=== PATIENT | male | born 1970 ===

== ENCOUNTER → 2016-05-10 | Outpatient (CLI) | payer BC, MEDICARE ==
[~2016-05-10] VITALS: Ht 179.1 cm; Wt 97.0 kg
[~2016-05-10] MED LIST: ADV500 IH; ALLO100T PO; ALPR0.5T PO; BUME1TAB30 PO; CALC25 PO; COLC0.6T69 PO; CYAN500 PO; DORZ210OS OP; FINA5TAB41 PO; HOMA5DRO8 OU; ISON300 PO; LISI-661 PO; METF500T4 PO; METO100XL PO; NIFE30TA5 PO; PYRI50 PO; SENN-30 PO; TAMS0.4C32 PO; TIOT185 IH
[2016-05-10 13:57] VITALS: BP 125/74
== END | disposition home or self-care (01) ==
LOC: SRCNTR 13:50
PROVIDERS: ATTEND Internal Medicine
DX: J44.9 Chronic obstructive pulmonary disease, unspecified (principal); I10 Essential (primary) hypertension; E11.9 Type 2 diabetes mellitus without complications; J98.6 Disorders of diaphragm; E87.2 Acidosis; J98.4 Other disorders of lung; R06.1 Stridor
CPT/HCPCS: G0463

== ENCOUNTER → 2016-09-06 | Outpatient (CLI) | payer BC, MEDICARE ==
[~2016-09-06] VITALS: Ht 180.3 cm; Wt 100.0 kg
[2016-09-06 14:01] VITALS: BP 120/57
== END | disposition home or self-care (01) ==
LOC: SRCNTR 13:51
PROVIDERS: ATTEND Internal Medicine
DX: J44.9 Chronic obstructive pulmonary disease, unspecified (principal); E11.9 Type 2 diabetes mellitus without complications; E87.2 Acidosis; I10 Essential (primary) hypertension; J98.6 Disorders of diaphragm
CPT/HCPCS: G0463

== ENCOUNTER → 2017-03-04 | Outpatient (CLI) | payer BC, MEDICARE ==
[~2017-03-04] VITALS: Ht 177.8 cm; Wt 104.0 kg
[~2017-03-04] MED LIST changes: +BUME1TAB17 PO; -BUME1TAB30 PO; +COLC0.6T67 PO; -COLC0.6T69 PO; -HOMA5DRO8 OU; -ISON300 PO; +SENN-175 PO; -SENN-30 PO
[2017-03-04 13:48] VITALS: BP 142/76
== END | disposition home or self-care (01) ==
LOC: SRCNTR 13:32
PROVIDERS: ATTEND Internal Medicine
DX: J44.9 Chronic obstructive pulmonary disease, unspecified (principal); E87.2 Acidosis; E11.9 Type 2 diabetes mellitus without complications; I10 Essential (primary) hypertension
CPT/HCPCS: G0463

== ENCOUNTER → 2017-06-14 | Outpatient (CLI) | payer BC, MEDICARE ==
[~2017-06-14] VITALS: Ht 177.8 cm; Wt 93.0 kg
[~2017-06-14] MED LIST changes: +METF-444 PO; -METF500T4 PO
[2017-06-14 13:39] VITALS: BP 155/85
== END | disposition home or self-care (01) ==
LOC: SRCNTR 13:36
PROVIDERS: ATTEND Internal Medicine
DX: J44.9 Chronic obstructive pulmonary disease, unspecified (principal); I10 Essential (primary) hypertension; E11.9 Type 2 diabetes mellitus without complications; E87.2 Acidosis
CPT/HCPCS: G0463

== ENCOUNTER → 2018-01-07 | Outpatient (CLI) | payer BC, MEDICARE ==
[~2018-01-07] VITALS: Ht 177.8 cm; Wt 111.5 kg
[~2018-01-07] MED LIST changes: +AMLO-512 PO; +GLIP2.5ER PO; +LINA5TAB PO; +LOSA50TA25 PO; -SENN-175 PO; +SENN-176 PO; +SIMV-260 PO
[2018-01-07 09:37] VITALS: BP 129/72
== END | disposition home or self-care (01) ==
LOC: SRCNTR 09:33
PROVIDERS: ATTEND Internal Medicine
DX: J44.1 Chronic obstructive pulmonary disease with (acute) exacerbation (principal); E11.9 Type 2 diabetes mellitus without complications; E78.5 Hyperlipidemia, unspecified
CPT/HCPCS: G0463

== ENCOUNTER → 2022-04-03 | Outpatient (CLI) | payer MEDICARE, BC ==
[~2022-04-03] VITALS: Ht 177.8 cm; Wt 105.0 kg
[~2022-04-03] MED LIST changes: -ADV500 IH; +ALLO-97 PO; -ALLO100T PO; -ALPR0.5T PO; +AMLO-258 PO; -AMLO-512 PO; -BUME1TAB17 PO; +BUME1TAB34 PO; +CALC0.2521 PO; -CALC25 PO; -COLC0.6T67 PO; -CYAN500 PO; +CYAN500T56 PO; +DORZ10DR6 OP; -DORZ210OS OP; +FINA-27 PO; -FINA5TAB41 PO; -GLIP2.5ER PO; -LINA5TAB PO; -LISI-661 PO; +LISI-893 PO; +LOSA-382 PO; -LOSA50TA25 PO; +METO-327 PO; -METO100XL PO; +NIFE-141 PO; -NIFE30TA5 PO; +PYRI-6 PO; -PYRI50 PO; -SENN-176 PO; +SENN-277 PO; +SITA25 PO; +TAMS-13 PO; -TAMS0.4C32 PO
[2022-04-03 09:57] VITALS: BP 122/61
== END | disposition home or self-care (01) ==
LOC: SRCNTR 09:41
PROVIDERS: ATTEND Internal Medicine
DX: J44.9 Chronic obstructive pulmonary disease, unspecified (principal); E11.9 Type 2 diabetes mellitus without complications; I10 Essential (primary) hypertension
CPT/HCPCS: G0463; Z7500